=== PATIENT | female | born 1975 | race Caucasian/White ===

== ENCOUNTER 2021-09-11 09:51 | Day surgery (SDC) | payer BC ==
[2021-09-07 13:29] VITALS: BMI 31.8
[~2021-09-11 09:51] MED LIST: DEXAMETHASONE SOD PHOSPHATE 4 MG/ML 1 ML VIAL IV ONE; HYDROmorphone 0.5 MG/0.5 ML SYRINGE IVP PRN; LACTATED RINGERS 1,000 ML IV SCH; MIDAZOLAM 2 MG/2 ML VIAL IV PRN; ONDANSETRON 4 MG/2 ML VIAL IVP ONE; SCOPOLAMINE 1.5MG/72HR PATCH TRANSDERM ONE
[2021-09-11] MEDS ORDERED: LIDOCAINE 1% (10MG/ML) FOR IV START INTRADERMA ONE (10:31)
[2021-09-11] MEDS ORDERED: fentaNYL (PF) 50 MCG/ML 2 ML AMP ONE (11:43)
[2021-09-11] MEDS ORDERED: PROPOFOL 10 MG/ML 20 ML VIAL IV ONE (11:43)
[2021-09-11] MEDS ORDERED: LIDOCAINE 1% INJ 10MG/ML (20 ML MDV) ONE (11:43)
[2021-09-11] MEDS ORDERED: MIDAZOLAM 2 MG/2 ML VIAL ONE (11:43)
[2021-09-11] MEDS ORDERED: BUPIVACAINE (PF) 0.5% 30 ML VIAL SQ ONE (11:45)
[2021-09-11] MEDS ORDERED: CLINDAMYCIN 600 MG in SODIUM CHLORIDE 0.9% 1,000 ML IRRIGATION ONE (12:07)
[2021-09-11] MEDS ORDERED: LACTATED RINGERS 1,000 ML IV ONE (12:47)
[2021-09-11 13:02] VITALS: RESP 16; TEMP 97
--- NOTE | 2021-09-11 13:24 | P.OP ---
Date of Procedure: 09/11/21 Preoperative Diagnosis: Hallux rigidus right foot Postoperative Diagnosis: Same Procedure(s) Performed: First metatarsal phalangeal joint arthrodesis right foot Implants: Arthrex MaxForce first MPJ fusion plate Anesthesia: DIXON Surgeon: Vasquez Singh Estimated Blood Loss (ml): 2 Pathology: none sent Condition: stable Disposition: PACU Operative Findings: Severe full-thickness erosion of articular cartilage on greater than 75% of the first metatarsal head Description of Procedure: The patient was brought into the operative room placed on table supine position. Timeout was taken to confirm correct patient identifiers, correct site procedure, and correct site of surgery. When the staff in the room were in agreement with the timeout, the patient was induced and placed under general anesthesia. A well-padded tourniquet was placed on the ankle and then 20 mL of 0.25% Marcaine was injected as an ankle block. The foot was then prepped and draped in usual manner. The foot was exsanguinated with an Esmarch bandage and the tourniquet inflated to 250 mmHg. Attention directed over the first metatarsal phalangeal joint where a linear incision was made between the extensor hallucis longus tendon and the neurovascular structures. The incision was deepened down to the subcutaneous tissue careful to identify, avoid, and retract any neurovascular structures and cauterize any bleeding vessels. Blunt dissection was continued down to the joint capsule. A linear periosteal and capsular incision was made to the extensor hallucis longus tendon. Subperiosteal dissection was performed to expose the base of the proximal phalanx and head of the first metatarsal. A reamer saw was then used to contour the first metatarsal head and remove any of the osteophytes. Then a guidewire was placed centrally into the first met atarsal head and into the medullary canal parallel to the long access of the metatarsal. The concave reamer was then used to remove the articular cartilage and subchondral bone and expose bleeding medullary bone. The guidewire was removed and then used to aggressively fenestrate the head of the first metatarsal to promote bleeding. The guidewire was then inserted at the central aspect of the articular surface of the base of the proximal phalanx. It was advanced into the medullary canal parallel to the long axis of the phalanx. The convex reamer was then used to remove the articular cartilage and subchondral bone and expose bleeding medullary bone. The guidewire was removed and used to aggressively fenestrate this surface also. The wound is then thoroughly irrigated with antibiotic saline. Approximately 1-1 mL of Arthrex bone morphogenic protein material was placed between the arthrodesis segments. Then the MaxForce plate was placed dorsally across the arthrodesis site utilizing aligned in the plate to placed over the joint surface. It was temporarily fixated in position was checked under fluoroscopy. Once position was acceptable locking screws were placed in the distal holes in the proximal phalanx. A guidewire was then placed across the arthrodesis site to hold the joint in its position. Then the drill hole for the compression device of the plate was made the compression device inserted and then utilized to further compress the arthrodesis site. Once that was completed threaded olive wire was used to lock the plate in place and then the second compression screw was placed proximally to lock the plate and further compress the joint. A second nonlocking screw was placed in the proximal portion of the plate into the metatarsal and the last screw placed with locking screw in the most proximal portion of the plate on the metatarsal. Final fluoroscopic imaging showed complete compression across the arthrodesis site and proper alignment of the great toe. The wound is again irrigated with antibiotic saline. Deep closure was done with 2-0 Vicryl. Subcu closure done for Monocryl. And skin closure done with 3-0 Stratafix in a running subcuticular manner. Dermal glue was applied and allowed to dry. Steri-Strips are placed over the incision, then a jumpstart dressing, and then a bulky dry dressing. The tourniquet was released and capillary refill return to all digits on the foot. Patient was then placed in a well-padded, well molded plaster posterior mold/sugar tong splint. The ankle and foot were held in neutral position until the splint was dried. Anesthesia was then reversed and the patient was taken recovery with vital signs stable
[2021-09-11 13:27] VITALS: PULSE 80
[2021-09-11 13:58] VITALS: BP 124/76
== END 2021-09-11 14:31 | disposition home or self-care (01) ==
LOC: OR 09:51
PROVIDERS: ATTEND Podiatrist
DX: M20.21 Hallux rigidus, right foot (principal); M25.774 Osteophyte, right foot; M19.071 Primary osteoarthritis, right ankle and foot; Z79.1 Long term (current) use of non-steroidal anti-inflammatories (NSAID); Z79.899 Other long term (current) drug therapy; Z88.0 Allergy status to penicillin; Z88.2 Allergy status to sulfonamides; Z83.3 Family history of diabetes mellitus; Z82.49 Family history of ischemic heart disease and other diseases of the circulatory system
CPT/HCPCS: 28750; J2250; J1100; J0690; J2405; J2001; J3010; J2704